=== PATIENT | male | born 1955 | race Caucasian/White ===

== ENCOUNTER 2019-08-10 20:49 | Inpatient (IN) | payer SELFPAY ==
[2019-08-10] MEDS ORDERED: Morphine 2 MG/ML SYRINGE SLOW IVP PRN (21:55)
[2019-08-10] MEDS ORDERED: Nitroglycerin 0.4 MG TAB (25 Tab Bottle) SL PRN (21:55)
[2019-08-10] MEDS ORDERED: Acetaminophen/Codeine 30-300mg Tablet PO PRN (21:56)
[2019-08-10] MEDS ORDERED: Mag-Al 1200 mg/1200 mg/30 ML UDCUP PO PRN (21:56)
[2019-08-10] MEDS ORDERED: Milk Of Magnesia 30 ML UDCUP PO PRN (21:56)
[2019-08-10] MEDS ORDERED: Zolpidem Tartrate 5 MG TAB PO PRN (21:56)
[2019-08-10] MEDS ORDERED: traMADol HCl 50 MG TAB PO PRN (21:56)
[2019-08-10] MEDS ORDERED: Aggrastat 12.5 MG/250 ML 250 ML IVPB SCH (22:00)
[2019-08-10] MEDS ORDERED: Sodium Chloride 0.9% 500 ML IV SCH (22:30)
[2019-08-10 23:10] LABS: CKMB 69.1 ng/mL (0-6.6); Troponin I 10.439 ng/mL (< 0.028)
[2019-08-10 23:43] VITALS: BMI 31.0
[2019-08-11 04:49] LABS: #Basophils 0.1 thou/uL (0.0-0.2); #Eosinphils 0.8 thou/uL (0.0-0.7); #Lymphocytes 2.1 thou/uL (1.20-3.40); #Monocytes 0.9 thou/uL (0.11-0.59); #Neutrophils 8.1 thou/uL (1.40-6.50); %Basophils 0.5 % (0.0-1.0); %Eosinophils 6.6 % (0.0-10.0); %Lymphocytes 17.7 % (21.0-51.0); %Monocytes 7.2 % (0.0-10.0); Hemoglobin 14.7 g/dL (14.0-18.0); Mean Corpuscular Hemoglobin 31.2 pg (27.0-31.0); Mean Corpuscular Volume 91.7 fL (78.0-98.0); Mean Platelet Volume 9.8 fL (7.4-10.4); Platelet Count 197 thou/uL (130-400); RBC Distribution Width 11.6 % (11.5-14.5); White Blood Cell (WBC) Count 11.9 thou/uL (4.8-10.8)
[2019-08-11 05:03] LABS: Anion Gap 15 mmol/L (10-20); BUN (Urea Nitrogen) 20 mg/dL (8.4-25.7); Calc. Creatinine Clearance 134 mL/min (70-130); Calcium 8.4 mg/dL (7.8-10.44); Carbon Dioxide 18 mmol/L (23-31); Cardiac Risk 4.2 (Less than 4.5); Chloride 108 mmol/L (98-107); Cholesterol 201 mg/dl (< 200 Desired); Estimated GFR-MDRD Greater than 90; Glucose 96 mg/dL (80-115); HDL Cholesterol 48 mg/dL (>60 Neg Risk); LDL Cholesterol, Calculated 135 mg/dL; Potassium 3.5 mmol/L (3.5-5.1); Sodium 137 mmol/L (136-145); Triglycerides 88 mg/dL (Less than 150)
[2019-08-11 05:19] LABS: Troponin I 42.426 ng/mL (< 0.028)
[2019-08-11 05:21] LABS: Free T4 (Free Thyroxine) 0.94 ng/dL (0.70-1.48); Thyroid Stimulating Hormone 0.9762 uIU/mL (0.35-4.94)
[2019-08-11 06:19] LABS: CKMB 104.9 ng/mL (0-6.6)
--- NOTE | 2019-08-11 07:30 | HP ---
CHIEF COMPLAINT: Chest pain. HISTORY OF PRESENT ILLNESS: Mr. Arreola is a very pleasant 64-year-old white gentleman, who comes to the hospital through the [facility] for chest pain. He was evaluated there and found to be in AFib, which is chronic for him. EKG showed a posterior ST elevation SC, so he was transferred emergently to [facility] in [place] for further care. He was taken immediately from the ER straight to the manager cath lab, where he was found to have thrombus in a very large OM branch. This artery was wired and stented successfully with a bare-metal stent. He has residual LAD disease at about 50% to 60%, closer to 60%. He denies any more chest pain, tightness or pressure. He states the pain started earlier this morning at 9 a.m.; however, it has been a kind of waxing and waning all day, and this evening, it just got much worse. Currently after stenting, he is chest pain free. PAST MEDICAL HISTORY: Chronic atrial fibrillation. OUTPATIENT MEDICATIONS: 1. He takes a medication for his AFib, that he does not remember the name, but it is a generic, it may be diltiazem, but he does not recall. 2. Aspirin 81 a day. ALLERGIES: NO KNOWN DRUG ALLERGIES. SOCIAL HISTORY: Smokes a pack a day for many years now. Social alcohol use barely. No drug use. FAMILY HISTORY: Noncontributory. 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 REVIEW OF SYSTEMS: 12-point review of systems was done and was all negative unless stated in the history of present illness. PHYSICAL EXAMINATION: VITAL SIGNS: Temperature 97.2, pulse 86, respiratory rate 20, saturating 98% on 2 L nasal cannula, and blood pressure . GENERAL: Awake, alert, and oriented x3. No distress. HEENT: Normocephalic and atraumatic. NECK: Supple. LUNGS: Clear. CARDIOVASCULAR: S1 and S2. No S3 or S4. No murmurs. ABDOMEN: Soft. Positive bowel sounds. EXTREMITIES: No edema. SKIN: Warm and dry. LABORATORY DATA: Laboratory work was reviewed from the [facility]. White count 10, hemoglobin 16, hematocrit 49, and platelet count 224. Chemistries are unremarkable except for carbon dioxide of and glucose of 165. Troponin initially was 0.03, which is in indeterminate range. CK-MB was 4.1. BNP was 81. Chest x-ray was unremarkable. EKG was reviewed, posterior ST-elevation SC. ASSESSMENT/PLAN: 1. Acute posterior ST-elevation myocardial infarction. 2. Chronic atrial fibrillation, rate controlled. 3. Medication noncompliance. He states he has not taken his medicines for the last 10 years. He just started taking them 2 weeks ago when he had a similar admission for chest pain somewhere in [place] when he was visiting. PLAN: 1. High-dose statin and aspirin. 2. Plavix for minimum of one month, but ideally for one whole year. 3. I will admit to ICU. 4. Bare-metal stent was placed on his OM-1, very large vessel. He has residual LAD disease at about 50% to 60%, closer to 60%. 5. Tobacco cessation counseling. 6. Full code. 7. PPI and he is on IIb/IIIa drip for now, so low risk for DVT. 8. Angio-Seal was placed in his right femoral arteriotomy site. He will still lay flat for 2 hours and bedrest for 3 hours. 9. Disposition, pending clinical evolution. Job ID: [id number]
[2019-08-11] MEDS: Clopidogrel Bisulfate 75 MG TAB PO SCH (09:26)
[2019-08-11] MEDS: Aspirin Chewable 81 MG TAB PO SCH (09:26)
[2019-08-11] MEDS: Carvedilol 3.125 MG TAB PO SCH ×2 (09:26→17:03)
--- NOTE | 2019-08-11 12:33 | PDOC.CPN ---
- Subjective Date: 08/11/19 Time: 12:29 Interval history: He is doing well. He denies any more chest pain, tightness ,pressure, SOB. He has been walking without issues. - Review of Systems General: denies: fever/chills, weight/appetite/sleep changes, night sweats, fatigue Respiratory: denies: cough, congestion, shortness of breath, exercise intolerance Cardiovascular: denies: chest pain, palpitation, edema, paroxysmal nocturnal dyspnea, orthopnea Gastrointestinal: denies: nausea, vomiting, diarrhea, constipation, abd pain, GI bleeding Musculoskeletal: denies: pain, tenderness, stiffness, swelling, arthritis/ arthralgias Neurological: denies: numbness, syncope, seizure, weakness - Objective Allergies/Adverse Reactions: Allergies Allergy/AdvReac Type Severity Reaction Status Date / Time No Known Drug Allergies Allergy Verified 08/10/19 22:44 Visit Medications: Current Medications Acetaminophen/Codeine Phosphate (Tylenol #3) 1 tab PO Q4H PRN PRN Reason: Mild Pain (1-3) Al Hydroxide/Mg Hydroxide (Maalox) 30 ml PO Q3H PRN PRN Reason: Indigestion Aspirin (Aspirin Chewable) 81 mg PO DAILY [facility] Last Admin: 08/11/19 09:26 Dose: 81 mg Atorvastatin Calcium (Lipitor) 80 mg PO [facility] Carvedilol (Coreg) 3.125 mg PO BID-[facility] Last Admin: 08/11/19 09:26 Dose: 3.125 mg Clopidogrel Bisulfate (Plavix) 75 mg PO DAILY [facility] Last Admin: 08/11/19 09:26 Dose: 75 mg Magnesium Hydroxide (Milk Of Magnesium) 30 ml PO Q12H PRN PRN Reason: Constipation Morphine Sulfate (Morphine) 2 mg SLOW IVP Q4H PRN PRN Reason: Moderate Chest Pain (4-6) Nitroglycerin (Nitrostat) 0.4 mg SL Q5MIN PRN PRN Reason: Chest Pain Pantoprazole Sodium (Protonix) 40 mg PO DAILY [facility] Last Admin: 08/11/19 09:26 Dose: 40 mg Tramadol HCl (Ultram) 50 mg PO Q6H PRN PRN Reason: Mild Pain (1-3) Zolpidem Tartrate (Ambien) 5 mg PO HSPRN PRN PRN Reason: Insomnia Vital Signs & Weight: Vital Signs Temp Pulse Ox 08/11/19 08:00 96 08/11/19 07:00 98.6 F 08/11/19 04:00 98.6 F Weight 232 lb 2.348 oz - Physical Exam General: alert & oriented x3 HEENT: mucus membranes moist Neck: supple neck Cardiac: no murmur, irregularly regular Lungs: clear to auscultation, no wheeze, rales, rhonchi Neuro: grossly intact Abdomen: active bowel sounds, soft, non-tender Extremities: no edema Skin: clear Musculoskeletal: no pain - Labs Result Diagrams: 08/11/19 03:37 08/11/19 03:37 Troponin/CKMB CK-MB (CK-2) 104.9 ng/mL (0-6.6) H* 08/11/19 03:37 Troponin I 42.426 ng/mL (< 0.028) H* 08/11/19 03:37 - Telemetry Supraventricular conduction: atrial fibrillation - Assessment/Plan Assessment/Plan: 1. Acute OR, Posterior STEMI 2. Chronic afib 3. Tobacco use PLAN: - Continue ASA, high dose statin, BB, will ad dlow dose ACEI. - Normal Lv function on echo. - Aspirin alone for stroke prophylaxis due to a CHADs VASc score of 0. - Tobacco cessation counselling. - Will transfer to telemetry. - Critical Care Time Critical care time (mins): 30
[2019-08-11] MEDS ORDERED: Atorvastatin Calcium 40 MG TAB PO SCH (21:00)
[2019-08-12 04:36] LABS: #Basophils 0.1 thou/uL (0.0-0.2); #Eosinphils 0.9 thou/uL (0.0-0.7); #Lymphocytes 2.1 thou/uL (1.20-3.40); #Monocytes 0.6 thou/uL (0.11-0.59); #Neutrophils 5.8 thou/uL (1.40-6.50); %Basophils 0.7 % (0.0-1.0); %Eosinophils 9.3 % (0.0-10.0); %Lymphocytes 22.3 % (21.0-51.0); %Monocytes 6.8 % (0.0-10.0); %Neutrophils 60.9 % (42.0-75.0); Hemoglobin 14.8 g/dL (14.0-18.0); Mean Corpuscular HGB CONC 34.4 g/dL (32.0-36.0); Mean Corpuscular Hemoglobin 31.5 pg (27.0-31.0); Mean Corpuscular Volume 91.5 fL (78.0-98.0); Mean Platelet Volume 9.4 fL (7.4-10.4); Platelet Count 195 thou/uL (130-400); RBC Distribution Width 11.5 % (11.5-14.5); Red Blood Cell (RBC) Count 4.71 mill/uL (4.70-6.10); White Blood Cell (WBC) Count 9.5 thou/uL (4.8-10.8)
[2019-08-12 04:58] LABS: Anion Gap 11 mmol/L (10-20); BUN (Urea Nitrogen) 17 mg/dL (8.4-25.7); Calc. Creatinine Clearance 115 mL/min (70-130); Calcium 8.8 mg/dL (7.8-10.44); Carbon Dioxide 22 mmol/L (23-31); Chloride 108 mmol/L (98-107); Estimated GFR-MDRD 77; Glucose 88 mg/dL (80-115); Sodium 137 mmol/L (136-145)
[2019-08-12] MEDS ORDERED: Lisinopril 2.5 MG TAB PO SCH (09:00)
[2019-08-12] MEDS: Carvedilol 3.125 MG TAB PO SCH (09:49)
[2019-08-12] MEDS: Aspirin Chewable 81 MG TAB PO SCH (09:49)
[2019-08-12] MEDS: Clopidogrel Bisulfate 75 MG TAB PO SCH (09:50)
[2019-08-12] MEDS ORDERED: Carvedilol 6.25 MG TAB PO SCH ×2 (10:30→17:00)
[2019-08-12] MEDS ORDERED: Carvedilol 3.125 MG TAB PO SCH (10:30)
--- NOTE | 2019-08-12 10:31 | PDOC.CPN ---
- Subjective Date: 08/12/19 Time: 10:31 Interval history: The pt seen and examined. No overnight events. No cardiac complaints. He has walked without any cardiac complaints. - Objective Allergies/Adverse Reactions: Allergies Allergy/AdvReac Type Severity Reaction Status Date / Time No Known Drug Allergies Allergy Verified 08/10/19 22:44 Visit Medications: Current Medications Acetaminophen/Codeine Phosphate (Tylenol #3) 1 tab PO Q4H PRN PRN Reason: Mild Pain (1-3) Al Hydroxide/Mg Hydroxide (Maalox) 30 ml PO Q3H PRN PRN Reason: Indigestion Aspirin (Aspirin Chewable) 81 mg PO DAILY [facility] Last Admin: 08/12/19 09:49 Dose: 81 mg Atorvastatin Calcium (Lipitor) 80 mg PO HS [facility] Last Admin: 08/11/19 20:49 Dose: 80 mg Carvedilol (Coreg) 6.25 mg PO BID-[facility] Carvedilol (Coreg) 3.125 mg PO NOW [facility] Stop: 08/12/19 12:30 Clopidogrel Bisulfate (Plavix) 75 mg PO DAILY [facility] Last Admin: 08/12/19 09:50 Dose: 75 mg Lisinopril (Zestril) 1.25 mg PO DAILY [facility] Last Admin: 08/12/19 09:49 Dose: 1.25 mg Magnesium Hydroxide (Milk Of Magnesium) 30 ml PO Q12H PRN PRN Reason: Constipation Morphine Sulfate (Morphine) 2 mg SLOW IVP Q4H PRN PRN Reason: Moderate Chest Pain (4-6) Nitroglycerin (Nitrostat) 0.4 mg SL Q5MIN PRN PRN Reason: Chest Pain Pantoprazole Sodium (Protonix) 40 mg PO DAILY [facility] Last Admin: 08/12/19 09:50 Dose: 40 mg Tramadol HCl (Ultram) 50 mg PO Q6H PRN PRN Reason: Mild Pain (1-3) Zolpidem Tartrate (Ambien) 5 mg PO HSPRN PRN PRN Reason: Insomnia Vital Signs & Weight: Vital Signs Temp Pulse Resp BP Pulse Ox 08/12/19 09:49 63 08/12/19 08:00 97.3 F L 63 13 129/74 96 08/12/19 03:40 98.1 F 81 16 95/68 97 08/11/19 23:36 98.3 F 80 18 98/70 97 Weight 232 lb 2.348 oz - Physical Exam General: alert & oriented x3 HEENT: mucus membranes moist Neck: supple neck Cardiac: irregularly regular Lungs: clear to auscultation, decreased breath sounds Neuro: cranial nerve 2-12 intact Abdomen: unremarkable Extremities: no cyanosis Skin: other (Rt Fam CLARA with no drainage, hematoma, or mass to palptate) Musculoskeletal: normal range of motion - Labs Result Diagrams: 08/12/19 04:01 08/12/19 04:01 Troponin/CKMB CK-MB (CK-2) 104.9 ng/mL (0-6.6) H* 08/11/19 03:37 Troponin I 42.426 ng/mL (< 0.028) H* 08/11/19 03:37 - Telemetry Supraventricular conduction: atrial fibrillation (HR 80-140s with movement.) - Assessment/Plan Assessment/Plan: 1. Acute OR, Posterior STEMI and s/p BMS to OM on 08/11/2019 - stable; on Bblocker, ELIZABETH, ASA, Plavix, and Lipitor 80mg qd 2. Chronic afib with CHADs VASc score of 1 (hx of OR) - cont. ASA; will increase Coreg from 3.125mg to 6.25mg BID for elevated HR up to 140s with mild movement. 3. Tobacco use - smoking cessation education given to the pt and family MAR reviewed Pt. seen and eval. by me. I agree with the A/P by the PRINTING ENGINEER. Chest clear. IRREG. No complaints. Wants to go home. Doing well s/p OR,PTCA/Stent. Will d/c to home.[email or web address]
[2019-08-12 11:35] VITALS: TEMP 97.9
[2019-08-12 13:15] LABS: Troponin I 6.934 ng/mL (< 0.028)
[2019-08-12 13:33] VITALS: BP 110/71
--- NOTE | 2019-08-13 01:16 | DIS ---
DATE OF ADMISSION: 08/10/2019 DATE OF DISCHARGE: 08/12/2019 ADMITTING DIAGNOSIS: Acute posterior myocardial infarction. His other diagnoses include chronic atrial fibrillation, history of tobacco abuse. I am uncertain if he had documented hypercholesterolemia. DISCHARGE DIAGNOSES: Acute posterior myocardial infarction. His other diagnoses include chronic atrial fibrillation, history of tobacco abuse. I am uncertain if he had documented hypercholesterolemia. He was diagnosed with as noted a posterior myocardial infarction. PROCEDURES IN HOSPITAL: Included a cardiac catheterization with angioplasty and stent placement. I am uncertain exactly which side stent was placed, he had stent placement, assuming this is a non-drug coated stent, I believe. The cath report is not yet available. DISCHARGE MEDICATIONS: Include; 1. Aspirin 81 mg a day. 2. Atorvastatin 80 mg q.p.m. 3. Coreg 6.25 mg p.o. daily. 4. Zestril 1.25 mg a day. 5. Protonix 40 mg a day as needed. 6. Nitroglycerin p.r.n. FOLLOWUP: He will follow with Dr. Jolly within next 2 to 3 weeks. We will continue his followups with his primary care physician. HOSPITAL COURSE: He has been placed on beta blockers, ELIZABETH inhibitors as well as statins for his chronic atrial fibrillation. He has a CHADS-VASC score of 0. He also was counseled against smoking. The patient also believe he may have sleep apnea and I have advised him to undergo sleep study if indicated and perhaps wears a CPAP mask. He also had an echocardiogram performed while he was in the hospital. This showed an ejection fraction to be well preserved at about 50% to 55%. He does have evidence of diastolic dysfunction, most likely may have diastolic dysfunction but was felt to be indeterminate due to his atrial fibrillation. His left atrium was mildly dilated as well as the right atrium. He did have some mitral annular calcifications present as well as mild mitral valve regurgitation. The aortic valve appeared to be sclerotic but there was no evidence of significant stenosis and he had mild tricuspid valve regurgitation. He has done well since his myocardial infarction. He has been ambulating in the halls. He denies any chest pain. His peak Troponin I was 42.4. His peak CK was 100 and CK-MB was 104. His last troponin I today was 6.9, elevated troponin of 42, most likely indicated washout after the vessel was opened. His BNP was 198. His other laboratory data was stable with a BUN of 17 and a creatinine of 0.98 today, potassium is 4.0. His blood sugar was 88, hemoglobin was 14.8, WBC of 9.5, and a platelet count of 195,000. He has done very well without complaints except he says he has been unable to sleep due to repeated interruptions from the staff checking vital signs. Otherwise, he has no chest pain, no shortness of breath, no lower extremity edema. Exam today shows the chest to be clear. Cardiovascular exam reveals an irregularly irregular rhythm associated with his atrial fibrillation. The heart rate appears to be under reasonable control. At this time, we will plan for discharge and he can follow up with Dr. Jolly as noted and otherwise appears to be stable for discharge home. Job ID: [id number]
--- NOTE | 2019-08-13 14:25 | EKG ---
Test Reason : Blood Pressure : / mmHG Vent. Rate : 075 BPM Atrial Rate : 340 BPM P-R Int : 000 ms QRS Dur : 084 ms QT Int : 406 ms P-R-T Axes : 000 094 070 degrees QTc Int : 453 ms Atrial fibrillation Rightward axis Abnormal ECG No previous ECGs available Confirmed by PUSHPA RO (2) on 08/13/2019 2:25:10 PM Referred By: JOVI Confirmed By:PUSHPA RO
== END 2019-08-12 15:50 | disposition home or self-care (01) | DRG 249 ==
LOC: CCL 20:49 → CCU 22:13 → 2SE 08-11 15:54
PROVIDERS: ADMIT Internal Medicine Cardiovascular Disease; ATTEND Internal Medicine Cardiovascular Disease
PROC: 02703DZ Dilation of Coronary Artery, One Artery with Intraluminal Device, Percutaneous Approach (ICD-10-PCS; principal; 2019-08-10)
PROC: 4A023N7 Measurement of Cardiac Sampling and Pressure, Left Heart, Percutaneous Approach (ICD-10-PCS; 2019-08-10)
PROC: B2111ZZ Fluoroscopy of Multiple Coronary Arteries using Low Osmolar Contrast (ICD-10-PCS; 2019-08-10)
PROC: B2151ZZ Fluoroscopy of Left Heart using Low Osmolar Contrast (ICD-10-PCS; 2019-08-10)
DX: I21.29 ST elevation (STEMI) myocardial infarction involving other sites (principal); I48.20 Chronic atrial fibrillation, unspecified; F17.210 Nicotine dependence, cigarettes, uncomplicated; E78.00 Pure hypercholesterolemia, unspecified; Z79.01 Long term (current) use of anticoagulants; Z91.14 Patient's other noncompliance with medication regimen
CPT/HCPCS: 36415; 36416; 80048; 80061; 82553; 83880; 84439; 84443; 84484; 85025; 93005; 93010; 93306; 93798; C1760; C1769; C1876